=== PATIENT | female | born 1980 | race Caucasian/White ===

== ENCOUNTER 2017-11-30 11:36 | Inpatient (IN) ==
[2017-11-30 12:40] LABS: Basophils # 0.1 10*3/uL (0.0-0.2); Basophils % 0.6 % (0.0-0.8); Eosinophils # 0.1 10*3/uL (0.0-0.87); Eosinophils % 0.5 % (0.00-10.9); Hematocrit 36.6 VOL% (35.7-47.0); Hemoglobin 11.9 GM/DL (12.0-16.0); Immature Granulocytes % 0.5 %; Immature Granulocytes Absolute 0.06 #; Lymphocytes # 1.6 10*3/uL (1.4-4.0); Lymphocytes % 14.7 % (21.3-54.2); Mean Corpuscular HGB Conc 32.5 GM/DL (32-36); Mean Corpuscular Hemoglobin 28 PG (27-34); Mean Corpuscular Volume 84.5 FL (87-102); Mean Platelet Volume 8.2 FL (9.6-12.0); Monocytes # 0.9 10*3/uL (0.11-0.8); Neutrophils # 8.4 10*3/uL (1.4-7.4); Neutrophils % 75.7 % (38.7-73.9); Platelet Count 344 T/CUMM (130-400); Red Blood Count 4.33 MC/CUMM (3.8-5.5); Red Cell Distribution Width 15.3 % (9.3-17.3); White Blood Count 11.1 T/CUMM (4-12)
[2017-11-30 13:23] LABS: Alanine Aminotransferase 151 U/L (13-56); Albumin 3.5 G/DL (3.4-5.0); Alkaline Phosphatase 80 U/L (45-117); Aspartate Amino Transferase 87 U/L (0-37); Blood Urea Nitrogen 13 MG/DL (7-18); Calcium 8.7 MG/DL (8.5-10.1); Glucose 59 MG/DL (74-106); Osmolality,Calculated 276.4 MOS/KG (273-304); Potassium 3.3 MMOL/L (3.5-5.1); Sodium 140 MMOL/L (136-145); Total Protein 7.8 G/DL (6.4-8.3)
[2017-11-30 14:02] LABS: Barbiturates Screen,Urine Negative (Negative); Benzodiazepines Screen,Urine Negative (Negative); Cannabinoid Screen,Urine Negative (Negative); Opiate Screen,Urine Negative (Negative); Phencyclidine Screen,Urine Negative (Negative)
[2017-11-30] MEDS ORDERED: NICOTINE 21 MG/24 HR PATCH TRANSDERM PRN (14:46)
[2017-11-30] MEDS ORDERED: ONDANSETRON 4 MG/2 ML VIAL IV PRN (14:46)
[2017-11-30] MEDS ORDERED: POTASSIUM CHLORIDE INJ 30 MEQ in LACTATED RINGERS 1,000 ML IV SCH (15:00)
[2017-11-30] MEDS ORDERED: LEVOFLOXACIN INJ 500 MG in PREMIX 1 EACH IV STA (15:30)
[2017-11-30] MEDS ORDERED: LEVOFLOXACIN INJ 0 ML IV ONE (15:33)
[2017-11-30] MEDS ORDERED: ENOXAPARIN 40 MG/0.4 ML SYRINGE ONE (16:19)
[2017-11-30] MEDS: ENOXAPARIN 40 MG/0.4 ML SYRINGE SUBCUT SCH (16:20)
[2017-11-30] MEDS ORDERED: POTASSIUM CHLORIDE RIDER 10 MEQ in PREMIX 1 EACH IV PRN (20:06)
[2017-11-30] MEDS: BENZTROPINE 1 MG TABLET PO SCH (21:07)
[2017-11-30] MEDS: GABAPENTIN 100 MG CAPSULE PO SCH (21:07)
[2017-11-30] MEDS: LACTATED RINGERS 1,000 ML IV SCH (21:08)
[2017-11-30] MEDS: POTASSIUM CHLORIDE RIDER 20 MEQ in PREMIX 1 EACH IV PRN (21:37)
[2017-12-01] MEDS: POTASSIUM CHLORIDE RIDER 20 MEQ in PREMIX 1 EACH IV PRN (01:24)
[2017-12-01] MEDS: LACTATED RINGERS 1,000 ML IV SCH (05:08)
[2017-12-01 06:19] LABS: Calcium 8.3 MG/DL (8.5-10.1); Osmolality,Calculated 274.5 MOS/KG (273-304)
[2017-12-01] MEDS ORDERED: INFLUENZA VIRUS VACCINE 0.5 ML SYRINGE IM ONE (09:00)
[2017-12-01] MEDS: GABAPENTIN 100 MG CAPSULE PO SCH ×2 (09:27→21:27)
[2017-12-01] MEDS: BENZTROPINE 1 MG TABLET PO SCH ×2 (09:27→21:24)
[2017-12-01] MEDS: ENOXAPARIN 40 MG/0.4 ML SYRINGE SUBCUT SCH (15:30)
[2017-12-02] MEDS: BENZTROPINE 1 MG TABLET PO SCH ×2 (09:24→20:56)
[2017-12-02] MEDS: GABAPENTIN 100 MG CAPSULE PO SCH ×2 (09:24→20:56)
[2017-12-02] MEDS: ENOXAPARIN 40 MG/0.4 ML SYRINGE SUBCUT SCH (15:12)
[2017-12-02] MEDS: IBUPROFEN 800 MG TABLET PO PRN (17:04)
[2017-12-02] MEDS: HALOPERIDOL 5 MG TABLET PO SCH (20:56)
[2017-12-02] MEDS: ACETAMINOPHEN 325 MG TABLET PO PRN (22:30)
[2017-12-03] MEDS ORDERED: SIMETHICONE CHEW 80 MG TABLET PO PRN (08:14)
[2017-12-03] MEDS: BENZTROPINE 1 MG TABLET PO SCH ×2 (09:38→20:36)
[2017-12-03] MEDS: FAMOTIDINE 20 MG TABLET PO SCH ×2 (09:38→20:36)
[2017-12-03] MEDS: GABAPENTIN 100 MG CAPSULE PO SCH ×2 (09:38→20:36)
[2017-12-03] MEDS: ONDANSETRON 4 MG TABLET PO PRN ×2 (13:11→20:36)
[2017-12-03] MEDS: ACETAMINOPHEN 325 MG TABLET PO PRN (14:27)
[2017-12-03] MEDS: ENOXAPARIN 40 MG/0.4 ML SYRINGE SUBCUT SCH (15:39)
[2017-12-03] MEDS: IBUPROFEN 800 MG TABLET PO PRN (20:36)
[2017-12-03] MEDS: HALOPERIDOL 5 MG TABLET PO SCH (20:36)
[2017-12-04] MEDS: BENZTROPINE 1 MG TABLET PO SCH (09:10)
[2017-12-04] MEDS: IBUPROFEN 800 MG TABLET PO PRN (09:10)
[2017-12-04] MEDS: FAMOTIDINE 20 MG TABLET PO SCH (09:11)
[2017-12-04] MEDS: GABAPENTIN 100 MG CAPSULE PO SCH (09:11)
[2017-12-04 11:41] VITALS: BP 106/54
== END 2017-12-04 12:40 | disposition home or self-care (01) | DRG 72 ==
LOC: EDBD → EDUNIT# → N.ED 11:36 → N.EDINP 14:46 → SUATTDRO 14:46 → N.EDINP 18:33 → N.CC 18:44 → N.5E 12-02 11:46
PROVIDERS: ADMIT Internal Medicine Cardiovascular Disease; ATTEND Family Medicine

== ENCOUNTER 2018-05-24 13:31 | Inpatient (IN) ==
[2018-05-24] MEDS ORDERED: SODIUM CHLORIDE 0.9% 1,850 ML IV ONE ×2 (14:16→15:43)
[2018-05-24] MEDS ORDERED: VANCOMYCIN INJ 1,000 MG in SODIUM CHLORIDE 0.9% 250 ML IV ONE (14:30)
[2018-05-24 15:16] LABS: Basophils # 0.1 10*3/uL (0.0-0.2); Basophils % 0.4 % (0.0-0.8); Eosinophils # 0.1 10*3/uL (0.0-0.87); Eosinophils % 0.8 % (0.00-10.9); Hematocrit 37.1 VOL% (35.7-47.0); Hemoglobin 11.9 GM/DL (12.0-16.0); Immature Granulocytes % 0.5 %; Lymphocytes # 2.1 10*3/uL (1.4-4.0); Lymphocytes % 11.4 % (21.3-54.2); Mean Corpuscular HGB Conc 32.1 GM/DL (32-36); Mean Corpuscular Hemoglobin 27 PG (27-34); Mean Corpuscular Volume 84.1 FL (87-102); Mean Platelet Volume 8.8 FL (9.6-12.0); Monocytes # 1.2 10*3/uL (0.11-0.8); Monocytes % 6.2 % (1.7-12.7); Neutrophils # 14.9 10*3/uL (1.4-7.4); Neutrophils % 80.7 % (38.7-73.9); Platelet Count 231 T/CUMM (130-400); Red Blood Count 4.41 MC/CUMM (3.8-5.5); Red Cell Distribution Width 16.4 % (9.3-17.3); White Blood Count 18.5 T/CUMM (4-12)
[2018-05-24 15:32] LABS: INR 1.1
[2018-05-24 15:36] LABS: Albumin 2.9 G/DL (3.4-5.0); Bilirubin,Total 1.9 MG/DL (0.2-1.0); Osmolality,Calculated 273.5 MOS/KG (273-304); Total Protein 6.5 G/DL (6.4-8.3)
[2018-05-24] MEDS ORDERED: diphenhydrAMINE CAP 25 MG CAPSULE PO PRN (15:41)
[2018-05-24] MEDS ORDERED: ACETAMINOPHEN 325 MG TABLET PO PRN (15:41)
[2018-05-24] MEDS ORDERED: MORPHINE 4 MG/1 ML VIAL IV PRN (15:41)
[2018-05-24] MEDS ORDERED: ONDANSETRON 4 MG/2 ML VIAL IV PRN (15:41)
[2018-05-24] MEDS ORDERED: DOCUSATE SODIUM 100 MG CAPSULE PO PRN (15:41)
[2018-05-24] MEDS ORDERED: NICOTINE 21 MG/24 HR PATCH TRANSDERM PRN (15:41)
[2018-05-24 15:50] LABS: Apearance,Urine CLOUDY (Clear); Bacteria,Urine Occasional /HPF (Few); Bilirubin,Urine Negative (Negative); Blood, Urine Negative (Negative); Glucose,Urine (UA) Negative (Negative); Ketones,Urine 5 mg/dL (Negative); Mucus,Urine Many /LPF (Occasional); Nitrite,Urine Negative (Negative); Protein,Urine 30 MG/DL; RBC,Urine 2 /HPF (0-4); Squamous Epithelial Cell,Urine Moderate /HPF (0-10); Urine Color Amber (Yellow); Urine Specific Gravity 1.024 (1.001-1.035); WBC,Urine 4 /HPF (0-6)
[2018-05-24 15:55] LABS: Barbiturates Screen,Urine Negative (Negative); Benzodiazepines Screen,Urine Negative (Negative); Cannabinoid Screen,Urine Positive (Negative); Opiate Screen,Urine Positive (Negative); Phencyclidine Screen,Urine Negative (Negative)
[2018-05-24] MEDS ORDERED: GENTAMICIN INJ 280 MG in SODIUM CHLORIDE 0.9% 100 ML IV ONE (16:30)
[2018-05-24] MEDS: LACTATED RINGERS 1,000 ML IV SCH (18:30)
[2018-05-24] MEDS: PANTOPRAZOLE 40 MG TABLET PO SCH (18:45)
[2018-05-24] MEDS: PIPERACILLIN/TAZOBACTAM 3,375 MG in SODIUM CHLORIDE 0.9% 100 ML IV SCH (18:46)
[2018-05-24] MEDS: BENZTROPINE 1 MG TABLET PO SCH (20:24)
[2018-05-24] MEDS: ENOXAPARIN 40 MG/0.4 ML SYRINGE SUBCUT SCH (20:24)
[2018-05-24] MEDS: HALOPERIDOL 5 MG TABLET PO SCH (20:24)
[2018-05-25] MEDS: VANCOMYCIN INJ 1,000 MG in SODIUM CHLORIDE 0.9% 250 ML IV SCH ×3 (00:13→16:30)
[2018-05-25] MEDS: PIPERACILLIN/TAZOBACTAM 3,375 MG in SODIUM CHLORIDE 0.9% 100 ML IV SCH ×3 (00:13→19:29)
[2018-05-25] MEDS: LACTATED RINGERS 1,000 ML IV SCH ×3 (02:46→17:05)
[2018-05-25 03:16] LABS: Basophils # 0.1 10*3/uL (0.0-0.2); Basophils % 0.4 % (0.0-0.8); Eosinophils # 0.1 10*3/uL (0.0-0.87); Eosinophils % 1.1 % (0.00-10.9); Hematocrit 31.8 VOL% (35.7-47.0); Hemoglobin 10.1 GM/DL (12.0-16.0); Immature Granulocytes % 1.6 %; Lymphocytes # 2.5 10*3/uL (1.4-4.0); Lymphocytes % 20.2 % (21.3-54.2); Mean Corpuscular HGB Conc 31.8 GM/DL (32-36); Mean Corpuscular Hemoglobin 27 PG (27-34); Mean Corpuscular Volume 84.8 FL (87-102); Monocytes # 0.9 10*3/uL (0.11-0.8); Monocytes % 7.1 % (1.7-12.7); Neutrophils # 8.6 10*3/uL (1.4-7.4); Neutrophils % 69.6 % (38.7-73.9); Platelet Count 205 T/CUMM (130-400); Red Blood Count 3.75 MC/CUMM (3.8-5.5); Red Cell Distribution Width 16.7 % (9.3-17.3); White Blood Count 12.3 T/CUMM (4-12)
[2018-05-25 05:07] LABS: Calcium 7.5 MG/DL (8.5-10.1); Osmolality,Calculated 279.1 MOS/KG (273-304); Potassium 3.4 MMOL/L (3.5-5.1)
[2018-05-25] MEDS ORDERED: MAGNESIUM SULF RIDER 4 GM in PREMIX 1 EACH IV ONE (07:18)
[2018-05-25] MEDS ORDERED: POTASSIUM CHLORIDE 20 MEQ TABLET PO ONE (07:18)
[2018-05-25] MEDS: BENZTROPINE 1 MG TABLET PO SCH ×2 (09:22→20:51)
[2018-05-25] MEDS: PANTOPRAZOLE 40 MG TABLET PO SCH (09:22)
[2018-05-25] MEDS: HALOPERIDOL 5 MG TABLET PO SCH ×2 (09:22→20:51)
[2018-05-25] MEDS: ENOXAPARIN 40 MG/0.4 ML SYRINGE SUBCUT SCH (20:51)
[2018-05-26] MEDS: VANCOMYCIN INJ 1,000 MG in SODIUM CHLORIDE 0.9% 250 ML IV SCH ×4 (00:45→23:00)
[2018-05-26] MEDS: PIPERACILLIN/TAZOBACTAM 3,375 MG in SODIUM CHLORIDE 0.9% 100 ML IV SCH ×2 (04:09→16:00)
[2018-05-26] MEDS: LACTATED RINGERS 1,000 ML IV SCH ×2 (06:40→19:50)
[2018-05-26 08:21] LABS: Basophils # 0.1 10*3/uL (0.0-0.2); Basophils % 0.6 % (0.0-0.8); Eosinophils # 0.1 10*3/uL (0.0-0.87); Eosinophils % 1.4 % (0.00-10.9); Hemoglobin 9.8 GM/DL (12.0-16.0); Immature Granulocytes % 0.6 %; Immature Granulocytes Absolute 0.05 #; Lymphocytes # 1.8 10*3/uL (1.4-4.0); Lymphocytes % 21.2 % (21.3-54.2); Mean Corpuscular HGB Conc 32.7 GM/DL (32-36); Mean Corpuscular Hemoglobin 27 PG (27-34); Mean Corpuscular Volume 82.4 FL (87-102); Mean Platelet Volume 9.1 FL (9.6-12.0); Monocytes # 0.6 10*3/uL (0.11-0.8); Monocytes % 6.6 % (1.7-12.7); Neutrophils # 5.9 10*3/uL (1.4-7.4); Neutrophils % 69.6 % (38.7-73.9); Platelet Count 266 T/CUMM (130-400); Red Blood Count 3.64 MC/CUMM (3.8-5.5); Red Cell Distribution Width 17.1 % (9.3-17.3); White Blood Count 8.4 T/CUMM (4-12)
[2018-05-26 08:56] LABS: Albumin 2.2 G/DL (3.4-5.0); Bilirubin,Total 0.7 MG/DL (0.2-1.0); Calcium 7.4 MG/DL (8.5-10.1); Potassium 3.7 MMOL/L (3.5-5.1); Total Protein 5.4 G/DL (6.4-8.3)
[2018-05-26] MEDS: PANTOPRAZOLE 40 MG TABLET PO SCH (09:36)
[2018-05-26] MEDS: HALOPERIDOL 5 MG TABLET PO SCH ×2 (09:37→21:49)
[2018-05-26] MEDS: BENZTROPINE 1 MG TABLET PO SCH ×2 (09:37→21:48)
[2018-05-26] MEDS: ENOXAPARIN 40 MG/0.4 ML SYRINGE SUBCUT SCH (21:49)
[2018-05-27] MEDS: PIPERACILLIN/TAZOBACTAM 3,375 MG in SODIUM CHLORIDE 0.9% 100 ML IV SCH ×3 (01:08→17:49)
[2018-05-27] MEDS: VANCOMYCIN INJ 1,000 MG in SODIUM CHLORIDE 0.9% 250 ML IV SCH ×3 (09:20→23:49)
[2018-05-27] MEDS: HALOPERIDOL 5 MG TABLET PO SCH ×2 (09:20→21:31)
[2018-05-27] MEDS: BENZTROPINE 1 MG TABLET PO SCH ×2 (09:20→21:31)
[2018-05-27] MEDS: PANTOPRAZOLE 40 MG TABLET PO SCH (09:21)
[2018-05-27] MEDS: ENOXAPARIN 40 MG/0.4 ML SYRINGE SUBCUT SCH (21:31)
[2018-05-28] MEDS: PIPERACILLIN/TAZOBACTAM 3,375 MG in SODIUM CHLORIDE 0.9% 100 ML IV SCH ×3 (01:52→17:51)
[2018-05-28] MEDS: PANTOPRAZOLE 40 MG TABLET PO SCH (08:40)
[2018-05-28] MEDS: BENZTROPINE 1 MG TABLET PO SCH ×2 (08:40→21:21)
[2018-05-28] MEDS: HALOPERIDOL 5 MG TABLET PO SCH ×2 (08:40→21:21)
[2018-05-28] MEDS: VANCOMYCIN INJ 1,000 MG in SODIUM CHLORIDE 0.9% 250 ML IV SCH ×2 (08:41→16:07)
[2018-05-28] MEDS: ENOXAPARIN 40 MG/0.4 ML SYRINGE SUBCUT SCH (21:21)
[2018-05-29] MEDS: VANCOMYCIN INJ 1,000 MG in SODIUM CHLORIDE 0.9% 250 ML IV SCH ×3 (00:01→17:29)
[2018-05-29] MEDS: PIPERACILLIN/TAZOBACTAM 3,375 MG in SODIUM CHLORIDE 0.9% 100 ML IV SCH ×2 (03:31→12:20)
[2018-05-29] MEDS: BENZTROPINE 1 MG TABLET PO SCH (08:17)
[2018-05-29] MEDS: HALOPERIDOL 5 MG TABLET PO SCH (08:17)
[2018-05-29] MEDS: PANTOPRAZOLE 40 MG TABLET PO SCH (08:17)
[2018-05-29] MEDS ORDERED: IBUPROFEN 800 MG TABLET PO PRN (08:28)
[2018-05-29] MEDS ORDERED: MORPHINE 4 MG/1 ML VIAL IV PRN (10:14)
[2018-05-29 16:54] VITALS: BP 111/53
== END 2018-05-29 19:30 | disposition left against medical advice (07) | DRG 872 ==
LOC: EDUNIT# → N.ED 13:31 → N.EDINP 15:30 → SUATTDRO 15:30 → N.ICU 17:01 → N.3E 05-25 17:31
PROVIDERS: ADMIT Internal Medicine; ATTEND Internal Medicine